=== PATIENT | male | born 1970 | race Caucasian/White ===

== ENCOUNTER 2022-04-17 14:07 | Emergency (ER) | payer OTHER ==
[~2022-04-17] VITALS: Ht 188 cm; Wt 86.2 kg
== END 2022-04-17 16:31 | disposition home or self-care (01) ==
LOC: ED 14:07
DX: S51.851A Open bite of right forearm, initial encounter (principal); Z23 Encounter for immunization; W54.0XXA Bitten by dog, initial encounter
CPT/HCPCS: 90471; 90715; 99283-25